=== PATIENT | female | born 1970 | race Caucasian/White ===

== ENCOUNTER → 2020-01-08 | Outpatient (CLI) | payer OTHER ==
[~2020-01-08] MED LIST: AGM875T PO; DIET MED; LOSA1TAB3 PO; MECL-124 PO
--- NOTE | 2020-01-08 12:27 | Diagnostic Imaging Report ---
PROCEDURE: US Hepatic (Liver). TECHNIQUE: Multiple real-time grayscale images were obtained over the right upper quadrant in various projections. INDICATION: Elevated liver enzymes. FINDINGS: The liver is enlarged at 22 cm. There is diffuse increased echogenicity throughout the liver, consistent with hepatic steatosis. No discrete liver mass is detected. The portal vein is patent and shows normal direction of flow. Gallbladder is somewhat distended at 9.4 x 4.7 x 5.3 cm. However, no stones or sludge are identified. Gallbladder wall is borderline in thickness at 3 to 4 mm. No definite biliary ductal dilatation is seen. The visualized pancreas is unremarkable. IVC is patent. Right kidney is without calculi or hydronephrosis. There is no ascites. IMPRESSION: 1. Hepatomegaly and hepatic steatosis. 2. Mild gallbladder distention and borderline wall thickening. If there is concern for cholecystitis, HIDA scan may be useful for further evaluation. Dictated by: Dictated on workstation # [id number]
== END ==
LOC: RAD 09:56
PROVIDERS: ATTEND Registered Nurse
DX: K76.0 Fatty (change of) liver, not elsewhere classified (principal); K82.8 Other specified diseases of gallbladder
CPT/HCPCS: 76705